=== PATIENT | female | born 1970 | race Caucasian/White ===

== ENCOUNTER → 2019-03-28 | Outpatient (CLI) | payer OTHER ==
[~2019-03-28] MED LIST: CLOT15CR64 TP; ESTR1.2525 PO; IBU600 PO; LOR5 PO
--- NOTE | 2019-03-29 15:55 | RADIOLOGY IMAGING REPORT ---
FACILITY: [facility] PATIENT NAME: ILIA HALLMAN : [id number] MR: [id number] V: [id number] EXAM DATE: ORDERING PHYSICIAN: JOVANI BAZZI TECHNOLOGIST: Анна Cui PROCEDURE: BILATERAL DIGITAL SCREENING MAMMOGRAM WITH CAD ASSISTED INTERPRETATION & 3D TOMOSYNTHESIS. REASON FOR STUDY: Screening. COMPARISON: 07/07/2016 & 01/26/2014. VIEWS OBTAINED: 2D & 3D full field CC & MLO projections. BREAST DENSITY: Breast tissue demonstrates scattered fibroglandular tissue elements. MAMMOGRAM FINDINGS: There is no suspicious mass, calcification, or architectural distortion. IMPRESSION: BIRADS 1: Negative. DIAGNOSTIC CATEGORY 1--NEGATIVE. RECOMMENDATIONS: ROUTINE MAMMOGRAM AND CLINICAL EVALUATION IN 1YR. Dictated by: Efrain Pimentel M.D. on 03/29/2019 at 12:22 Transcribed by: JANNA on 03/29/2019 at 14:09 Approved by: Efrain Pimentel M.D. on 03/29/2019 at 15:51 [facility]
== END ==
LOC: MAMO 02:03
PROVIDERS: ATTEND Obstetrics & Gynecology
DX: Z12.31 Encounter for screening mammogram for malignant neoplasm of breast (principal)
CPT/HCPCS: 77063; 77067